=== PATIENT | male | born 1955 | race Two or more races ===

== ENCOUNTER 2019-11-14 08:58 | Inpatient (IN) | payer MEDICARE ==
[2019-11-14] VITALS (10 sets, daily range): BP systolic 111–143; BP diastolic 51–85
[~2019-11-14] VITALS: Ht 180.3 cm; Wt 133.4 kg
--- NOTE | 2019-11-14 09:15 | NUR ---
patient camein to the er c/o cough and congestion sob x 3 days, on room air 02 sat 78%, put patient on 02 @ 2lpm via NC, 02 sat went up to 92%. Connected to the monitor and pulse ox. kept comfortable, will continue to monitor accordingly.
[2019-11-14] MEDS ORDERED: ALBUTEROL FS 2.5 MG/3 ML VIAL.NEB CONTNEB ONE (09:30)
[2019-11-14 09:31] LABS: BASOPHILS # (AUTO) 0.1 /CMM (0.0-0.2); BASOPHILS % (AUTO) 0.6 % (0.0-2.0); EOSINOPHILS % (AUTO) 1.2 % (0.0-6.0); HEMATOCRIT 54 % (39-51); HEMOGLOBIN 18.2 g/dL (13.5-17.5); LYMPHOCYTES # (AUTO) 0.9 /CMM (0.8-4.8); LYMPHOCYTES % (AUTO) 9.2 % (20.0-44.0); MEAN CORPUSCULAR HGB CONC 34 g/dl (31.0-36.0); MEAN CORPUSCULAR VOLUME 91 fL (80-96); MONOCYTES # (AUTO) 0.9 /CMM (0.1-1.30); MONOCYTES % (AUTO) 8.5 % (2.0-12.0); NEUTROPHILS # (AUTO) 8.1 /CMM (1.8-8.9); NEUTROPHILS % (AUTO) 80.5 % (43.0-81.0); PLATELET COUNT (AUTO) 240 /CMM (150-450); RED BLOOD CELL COUNT(AUTO) 5.94 MIL/uL (4.5-6.0); WHITE BLOOD COUNT (AUTO) 10.1 K/uL (4.3-11.0)
[2019-11-14] MEDS ORDERED: ALBUTEROL FS 2.5 MG/3 ML VIAL.NEB ONE (09:33)
--- NOTE | 2019-11-14 09:35 | NUR ---
rt at bedside for treatment
[2019-11-14] MEDS ORDERED: CYAN-51 PO (09:39)
[2019-11-14] MEDS ORDERED: EXEN2PEN SQ (09:39)
[2019-11-14] MEDS ORDERED: ATOR40TA PO (09:39)
[2019-11-14] MEDS ORDERED: METF-440 PO (09:39)
[2019-11-14] MEDS ORDERED: METO25TA3 PO (09:39)
[2019-11-14] MEDS ORDERED: HYDR12.55 PO (09:39)
[2019-11-14] MEDS ORDERED: EMPA10TA PO (09:39)
[2019-11-14] MEDS ORDERED: TRAM50TA2 PO (09:39)
[2019-11-14] MEDS ORDERED: CYCL10TA9 PO (09:39)
[2019-11-14] MEDS ORDERED: INSU100I26 SQ (09:43)
[2019-11-14 09:53] LABS: CALCIUM, SERUM 9.6 mg/dL (8.5-10.1); CARBON DIOXIDE 32 mmol/L (21-32); CHLORIDE 101 mmol/L (98-107); CREATININE 0.9 mg/dL (0.6-1.3); GLUCOSE 98 mg/dL (74-106); POTASSIUM 4.9 mmol/L (3.5-5.1); SODIUM SERUM 140 mmol/L (136-145); UREA NITROGEN, BLOOD 14 mg/dL (7-18)
[2019-11-14 09:58] LABS: ALANINE AMINOTRANSFERASE 18 U/L (12-78); ALBUMIN 3.3 g/dL (3.4-5.0); ALKALINE PHOSPHATASE 94 U/L (46-116); ASPARTATE AMINOTRANSFERASE 23 U/L (15-37); B-TYPE NATRIURETIC PEPTIDE 185 PG/ML (0-125); BILIRUBIN,DIRECT 0.2 mg/dL (0.0-0.2); BILIRUBIN,TOTAL 0.7 mg/dL (0.2-1.0); TOTAL PROTEIN, SERUM 7.6 g/dL (6.4-8.2)
[2019-11-14 10:24] LABS: ABG BASE EXCESS 3.1 mmol/L; ABG OXYGEN SATURATION 88.7 % (92.0-98.5); ABG PCO2 56.7 mmHg (35.0-45.0); ABG PH 7.351 (7.350-7.450); ABG PO2 58.1 mmHg (75.0-100.0); AaDO2 132.8 mmHg; COHb 1.2 % (0.5-1.5); MetHb 0.4 % (0.0-1.5); O2Hb 87.3 % (94.0-97.0); SITE, ABG Right Radial; VENT MODE, BG NASAL CANNULA
[2019-11-14] MEDS ORDERED: IOHEXOL-350 100 ML VIAL IV ONE (10:26)
[2019-11-14] MEDS ORDERED: IV NS 0.9% 250 ML IV ONE (10:26)
[2019-11-14] MEDS ORDERED: CEFTRIAXONE 1 G in IV D5W 50 ML IV ONE (10:30)
[2019-11-14] MEDS ORDERED: AZITHROMYCIN 500 MG in IV D5W 250 ML IV ONE (10:30)
--- NOTE | 2019-11-14 10:36 | NUR ---
DR. DORIE QUINTANA, AWAITING FOR CALL BACK.
--- NOTE | 2019-11-14 10:57 | NUR ---
CALLED NURSING SUP FOR TELE BED.
--- NOTE | 2019-11-14 12:09 | NUR ---
PAGED THORACIC FORTUNE TELLER.
--- NOTE | 2019-11-14 13:55 | NUR ---
Report given to Brodie FU for continuity of care in the ICU
--- NOTE | 2019-11-14 14:40 | NUR ---
ICU/RN PT ADMITTED FROM ER WITH SOB,PLACED ON HIGH FLOW OXYGEN,FIO2-50%,SAT O2-94%,HR-110 BPM BP STABLE,AFEBRILE.NO PAIN REPORTED AT THIS TIME.PT IS AWAKE ,ALERT ,FOLLOWS COMMAND.AMBULATING IN THE ROOM.SOB ON EXERTIONS. IV-HL. CT CHEST DONE IN ER.PT HAS RIGHT LOBE BRONCHUS WITH TOTAL COLLAPSE AND OBSTRUCTIVE MASS, RECOMMENDED BRONCHOSCOPY.
[2019-11-14] MEDS ORDERED: Medication Not On Formulary EA (Exenatide Microspheres (Bydureon Pen) 2 MG) SQ SCH (17:00)
[2019-11-14] MEDS: METFORMIN 500 MG TABLET PO SCH (17:00)
--- NOTE | 2019-11-14 17:20 | NUR ---
ICU/RN BS-49.JUICE GIVEN ORDERED.PT EATS 100% FROM HIS MEAL TRAY.BS MEDS HOLD ORDERED BY .
[2019-11-14] MEDS ORDERED: DEXTROSE 50%-WATER 50 ML DISP.SYRIN IV PRN (18:00)
--- NOTE | 2019-11-14 18:55 | NUR ---
ICU/RN BS-109.
--- NOTE | 2019-11-14 19:30 | NUR ---
ICU/RN RECEIVED PATIENT A/O X4 AT THE MOMENT SHOWING NO SIGNS OF ANY DISTRESS. PATIENT IS ON 93% O2 SATURATION WITH HIGH FLOW OF OXYGEN. PATIENT ON THE MONITOR SHOWS SINUS RHYTHM WITH HR OF 95. PATIENT HAS A LFA AND A L HAND IV PATENT AND FLUSHING. PATIENT VITALS ARE WNL. ALL SAFETY PRECAUTIONS APPLIED WILL CONTINUE TO MONITOR PATIENT.
--- NOTE | 2019-11-14 21:53 | NUR ---
ICU/RN NOTE PAGED DR. PARR. REGARDING PATIENT REQUESTING TO USE OWN CPAP MACHINE. DR PARR GAVE THE OK.
[2019-11-14] MEDS: INSULIN GLARGINE, 100 UNIT/ML CARTRIDGE SQ SCH (21:57)
[2019-11-14] MEDS: BLOOD SUGAR DIAGNOSTIC 1 EACH STRIP IN SCH (21:57)
--- NOTE | 2019-11-14 21:58 | NUR ---
ICU/RN HOLDING LANTUS 50UNIT PATIENTS BLOOD SUGAR AT 81. WILL NOT BE EATING THROUGH OUT NIGHT. WILL CONTINUE TO MONITOR PATIENT.
[2019-11-14] MEDS: CYCLOBENZAPRINE 10 MG TABLET PO SCH (22:01)
[2019-11-15] VITALS (27 sets, daily range): BP systolic 97–179; BP diastolic 45–111
--- NOTE | 2019-11-15 06:13 | NUR ---
ICU/RN OFFERED PATIENT TO CHANGE SHEETS FROM BED AND PATIENT REFUSED SAID HE WILL WAIT TILL THE MORNING. WILL ENDORSE TO MORNING SHIFT NURSE.
--- NOTE | 2019-11-15 07:00 | NUR ---
BRIM WELT SEWING MACHINE OPERATOR CLOSING NOTE PATIENT IS IN BED WITH NO SIGN OF ANY DISTRESS. CONTINUES TO BE ON HIS HOME CPAP OF 10CFM AND 6L OF O2. SATURATING AT 93% WHEN AWAKE AND 88% WHEN ASLEEP. SO SIGN OF ANY SOB. ALL SAFETY PRECAUTIONS APPLIED. ENDORSED PATIENT TO MORNING SHIFT NURSE FOR JAZMYNE.
--- NOTE | 2019-11-15 07:30 | NUR ---
ICU/RN PT IS SITTING ON THE BED SOB,ON C-PAP.SAT O2-94%.V/S STABLE,AFEBRILE.NO PAIN REPORTED AT THIS TIME.IV -HL.BS-80.
--- NOTE | 2019-11-15 07:50 | NUR ---
RT PATIENT PLACED ON 5L N/C ADITHYA WELL. MAINTAINING SPO2 ABOVE 92%
[2019-11-15] MEDS: BLOOD SUGAR DIAGNOSTIC 1 EACH STRIP IN SCH ×4 (07:53→21:10)
[2019-11-15] MEDS: CYANOCOBALAMIN 500 MCG TABLET PO SCH (08:15)
[2019-11-15] MEDS: ATORVASTATIN 40 MG TABLET PO SCH (08:15)
[2019-11-15] MEDS: METFORMIN 500 MG TABLET PO SCH ×2 (08:16→16:43)
[2019-11-15] MEDS: HYDROCHLOROTHIAZIDE 25 MG TABLET PO SCH (08:16)
[2019-11-15] MEDS: METOPROLOL SUCCINATE 25 MG TAB.SR.24H PO SCH (08:17)
[2019-11-15] MEDS: TRAMADOL HCL 50 MG TABLET PO SCH (08:17)
[2019-11-15] MEDS: JARDIANCE PO SCH (08:20)
[2019-11-15] MEDS: INSULIN GLARGINE, 100 UNIT/ML CARTRIDGE SQ SCH ×2 (08:31→21:00)
--- NOTE | 2019-11-15 09:00 | NUR ---
ICU/RN DUE MEDS ARE GIVEN ORDERED.PT EATS 100% FROM HIS MEAL TRAY.
[2019-11-15] MEDS ORDERED: ALBUTEROL HALF STRENGTH 1.25 MG/3 ML VIAL.NEB NEB PRN (10:00)
[2019-11-15] MEDS ORDERED: IPRATROPIUM NEB FS 0.5 MG/2.5 ML AMPUL.NEB NEB PRN (10:00)
[2019-11-15 10:01] LABS: ABG BASE EXCESS 4.9 mmol/L; ABG OXYGEN SATURATION 94.1 % (92.0-98.5); ABG PCO2 56.7 mmHg (35.0-45.0); ABG PH 7.372 (7.350-7.450); ABG PO2 70.8 mmHg (75.0-100.0); AaDO2 149.2 mmHg; COHb 1.2 % (0.5-1.5); MetHb 0.4 % (0.0-1.5); O2Hb 92.6 % (94.0-97.0); SITE, ABG Right Radial; VENT MODE, BG HOME CPAP 10
--- NOTE | 2019-11-15 10:15 | NUR ---
ICU/RN DR CHARLTON SEEN THE PT NEW ORDERS RECEIVED.ABG DONE PT PLACED ON N/C.CONTINUE MONITORING.
[2019-11-15] MEDS: ALBUTEROL HALF STRENGTH 1.25 MG/3 ML VIAL.NEB NEB SCH ×3 (11:17→19:53)
[2019-11-15] MEDS: IPRATROPIUM NEB FS 0.5 MG/2.5 ML AMPUL.NEB NEB SCH ×3 (11:17→19:53)
[2019-11-15 12:50] LABS: BASOPHILS # (AUTO) 0.1 /CMM (0.0-0.2); EOSINOPHILS % (AUTO) 2.1 % (0.0-6.0); HEMATOCRIT 53 % (39-51); HEMOGLOBIN 17.1 g/dL (13.5-17.5); LYMPHOCYTES # (AUTO) 1.1 /CMM (0.8-4.8); LYMPHOCYTES % (AUTO) 12.6 % (20.0-44.0); MEAN CORPUSCULAR HGB CONC 32 g/dl (31.0-36.0); MEAN CORPUSCULAR VOLUME 92 fL (80-96); MONOCYTES # (AUTO) 0.8 /CMM (0.1-1.30); NEUTROPHILS # (AUTO) 6.5 /CMM (1.8-8.9); NEUTROPHILS % (AUTO) 75.3 % (43.0-81.0); PLATELET COUNT (AUTO) 231 /CMM (150-450); RED BLOOD CELL COUNT(AUTO) 5.77 MIL/uL (4.5-6.0); WHITE BLOOD COUNT (AUTO) 8.6 K/uL (4.3-11.0)
[2019-11-15 12:58] LABS: CALCIUM, SERUM 9.4 mg/dL (8.5-10.1); CREATININE 0.8 mg/dL (0.6-1.3); POTASSIUM 4.3 mmol/L (3.5-5.1)
--- NOTE | 2019-11-15 16:20 | NUR ---
ICU/RN RIGHT THORACENTESIS DONE 1310 ML PLEURAL FLUIDS OUT.PT TOLERATED PROCEDURE WELL.NO S/S OF BLEEDING NOTED. V/S STABLE,AFEBRILE.PT IS SITTING ON THE CHAIR NEXT TO THE BED ON N/C AT 6L .SAT O2-94%.
--- NOTE | 2019-11-15 19:00 | NUR ---
RN OPENING NOTES: PATIENT IN BED, AWAKE, AND VERBALLY RESPONSIVE. AAOX4. NO RESPIRATORY DISTRESS. ON O2 AT 6LPM VIA NC, TOLERATING WELL, SATTING 94%. (L) FA G18 AND (L) HAND G18 INTACT, PATENT, AND FLUSHING WELL. SALINE LOCKED. SAFETY PRECAUTIONS IMPLEMENTED. BED LOCKED, ALARM ON, AND IN LOWEST POSITION. CALL LIGHT PLACED WITHIN REACH. WILL CONT. TO MONITOR.
--- NOTE | 2019-11-15 21:00 | NUR ---
RN NOTE: LANTUS 50 UNITS NOT ADMINISTERED. PATIENT REFUSED. PATIENT'S BS 121. PER PATIENT, HE WILL NOT BE EATING THROUGHOUT THE NIGHT.
[2019-11-15] MEDS: CYCLOBENZAPRINE 10 MG TABLET PO SCH (21:10)
--- NOTE | 2019-11-15 21:29 | NUR ---
PT PLACED ON HOME CPAP MACHINE.
[2019-11-16] VITALS (16 sets, daily range): BP systolic 109–146; BP diastolic 54–85
[2019-11-16] MEDS: IPRATROPIUM NEB FS 0.5 MG/2.5 ML AMPUL.NEB NEB SCH ×4 (01:07→19:30)
[2019-11-16] MEDS: ALBUTEROL HALF STRENGTH 1.25 MG/3 ML VIAL.NEB NEB SCH ×4 (01:07→19:30)
--- NOTE | 2019-11-16 07:00 | NUR ---
RN CLOSING NOTES: PATIENT ASLEEP BUT EASILY AROUSABLE. AAOX4. NO RESPIRATORY DISTRESS. PATIENT TOLERATED CPAP AT NIGHT. (L) FA G18 AND (L) HAND G18 INTACT, PATENT, AND FLUSHING WELL. SALINE LOCKED. SAFETY PRECAUTIONS IMPLEMENTED. BED LOCKED, ALARM ON, AND IN LOWEST POSITION. CALL LIGHT PLACED WITHIN REACH. ENDORSED TO AM SHIFT NURSE FOR CONTINUITY OF CARE.
--- NOTE | 2019-11-16 07:30 | NUR ---
RN MED SURG OPENING NOTES PATIENT IS RESTING COMFORTABLY IN BED. A/O X4. NO RESPIRATORY DISTRESS IS NOTED AT THE MOMENT. PATIENT IS CURRENTLY ON THE CPAP MACHINE THAT HE HAS BROUGHT FROM HOME. SETTING ORDERED. RESPIRATORY WILL BE TAKING IT OFF SHORTLY. IV # 18 ON LEFT HAND AND FOREARM, BOTH ARE INTACT, PATENT, AND FLUSHED WELL. NO SIGNS OF INFECTION PRESENT. SKIN IS INTACT, PATIENT IS AMBULATORY AND IS ABLE TO USE THE URINAL. NSR/ST ON TELE MONITOR WITH HR GOING UP TO 106. CALL LIGHT WITHIN REACH, SAFETY MAINTAINED, WILL CONTINUE TO MONITOR.
[2019-11-16] MEDS: BLOOD SUGAR DIAGNOSTIC 1 EACH STRIP IN SCH ×4 (07:47→21:14)
[2019-11-16 08:09] LABS: ABG BASE EXCESS 3.6 mmol/L; ABG OXYGEN SATURATION 86.6 % (92.0-98.5); ABG PCO2 51.6 mmHg (35.0-45.0); ABG PH 7.384 (7.350-7.450); ABG PO2 50.3 mmHg (75.0-100.0); AaDO2 37.6 mmHg; COHb 1.2 % (0.5-1.5); MetHb 0.2 % (0.0-1.5); O2Hb 85.4 % (94.0-97.0); SITE, ABG Left Radial; VENT MODE, BG RA
[2019-11-16] MEDS: TRAMADOL HCL 50 MG TABLET PO SCH (09:00)
[2019-11-16] MEDS: INSULIN GLARGINE, 100 UNIT/ML CARTRIDGE SQ SCH ×2 (09:00→21:11)
[2019-11-16] MEDS: JARDIANCE PO SCH (09:13)
[2019-11-16] MEDS: CYANOCOBALAMIN 500 MCG TABLET PO SCH (09:13)
[2019-11-16] MEDS: HYDROCHLOROTHIAZIDE 25 MG TABLET PO SCH (09:14)
[2019-11-16] MEDS: METOPROLOL SUCCINATE 25 MG TAB.SR.24H PO SCH (09:15)
[2019-11-16] MEDS: ATORVASTATIN 40 MG TABLET PO SCH (09:15)
[2019-11-16] MEDS: INSULIN REGULAR, HUMAN 100 UNIT/ML 3 ML VIAL SQ PRN ×2 (13:17→21:15)
--- NOTE | 2019-11-16 18:53 | NUR ---
RNNOTES PATIENT TRANSFERRED TO SAM UNIT. WILL REMAIN THE NURSE FOR THE PATIENT. PATIENT IS IN STABLE CONDITION. ALL NEEDS MET. WILL CONTINUE TO MONITOR. SAFETY MAINTAINED.
--- NOTE | 2019-11-16 18:58 | NUR ---
RN CLOSING NOTES PATIENT IN STABLE CONDITION. NO ACUTE CHANGES TO PATIENT CONDITION DURING MY SHIFT. BLOOD GLUCOSE WAS UNDER CONTROL DURING MY SHIFT. DID NOT ADMINISTER THE MORNING DOSE OF LANTUS BECAUSE PATIENTS BLOOD SUGAR WAS WITHIN NORMAL RANGE AND PATIENT REFUSED BECAUSE HE TENDS TO DROP. PATIENT WAS PLACED ON 2L NASAL CANULA, DID NOT TOLERATE ROOM AIR WELL. TOLERATING O2 AT 2L VIA NC WELL, SATURATING @ 94%. SAFETY MAINTAINED, CALL LIGHT WITHIN REACH, ENDORSED TO CIRCULATION SUPERVISOR NURSE TO CONTINUE CARE.
--- NOTE | 2019-11-16 19:34 | NUR ---
RN SAM OPENING NOTES RECEIVED PT SITTING ON CHAIR, FAMILY AT BEDSIDE, AWAKE A/O X4 ABLE TO CONVERSE, ON O2 VIA NC @ 6L TOLERATING WELL WITH O2 SAT OF 98% NO COMPLAIN OF PAIN, WITH IV ON L HAND PATENT NO SIGN AND SYMPTOMS OF INFILTRATION, SAFETY MEASURE MAINTAIN CALL LIGHT WITH REACH, WILL CONT. TO MONITOR
[2019-11-16] MEDS: CYCLOBENZAPRINE 10 MG TABLET PO SCH (21:15)
[2019-11-17] VITALS (7 sets, daily range): BP systolic 108–145; BP diastolic 60–73
[2019-11-17] MEDS: ALBUTEROL HALF STRENGTH 1.25 MG/3 ML VIAL.NEB NEB SCH ×4 (00:33→13:24)
[2019-11-17] MEDS: IPRATROPIUM NEB FS 0.5 MG/2.5 ML AMPUL.NEB NEB SCH ×4 (00:33→13:24)
--- NOTE | 2019-11-17 07:00 | NUR ---
SAM RN Notes - Initial Notes Received patient from shift commander RN. Patient is alert and oriented x4, stable, in bed resting with CPAP. Per shift commander RN patient had thoracentesis with 1300 OP. No current signs of respiratory distress noted. Patient RR18, 02 96. Will change to nasal canula when patient is awake. Patient has IV access on right hand 20g and left AC 18g. Both are saline locked. Will continue to monitor. All measures taken to ensure patient safety. Bed in lowest position, call light within reach, safety alarms on.
--- NOTE | 2019-11-17 07:27 | NUR ---
RN CLOSING NOTES: PATIENT ASLEEP BUT EASILY AROUSABLE. AAOX4. NO RESPIRATORY DISTRESS. TELE MONITOR CURRENT READING IS SR 88 PATIENT TOLERATED CPAP AT NIGHT. (L) FA G18 AND (L) HAND G18 INTACT, PATENT, AND FLUSHING WELL. SALINE LOCKED. SAFETY PRECAUTIONS IMPLEMENTED. BED LOCKED, ALARM ON, AND IN LOWEST POSITION. CALL LIGHT PLACED WITHIN REACH. ENDORSED TO AM SHIFT NURSE FOR CONTINUITY OF CARE.
[2019-11-17] MEDS: BLOOD SUGAR DIAGNOSTIC 1 EACH STRIP IN SCH ×2 (08:24→11:42)
[2019-11-17] MEDS: ATORVASTATIN 40 MG TABLET PO SCH (08:54)
[2019-11-17] MEDS: HYDROCHLOROTHIAZIDE 25 MG TABLET PO SCH (08:56)
[2019-11-17] MEDS: METOPROLOL SUCCINATE 25 MG TAB.SR.24H PO SCH (08:57)
[2019-11-17] MEDS: CYANOCOBALAMIN 500 MCG TABLET PO SCH (08:58)
[2019-11-17] MEDS: INSULIN GLARGINE, 100 UNIT/ML CARTRIDGE SQ SCH (09:00)
[2019-11-17] MEDS: TRAMADOL HCL 50 MG TABLET PO SCH (09:00)
[2019-11-17] MEDS: JARDIANCE PO SCH (09:38)
--- NOTE | 2019-11-17 12:30 | NUR ---
mika rn note up on chair ,all needs attended ,per dr erich thao to remove isolation , no sob at this time ,will cont to monitor
--- NOTE | 2019-11-17 15:04 | NUR ---
mika rn note per dr kilgore ok to d\c patient home ,on ra at this time, no so noted , ok to cont home meds , per test case developer [employer] is arranged , instructed patient to f\u with primary care doctor and f\u with home health . home Meds given to patient from our pharmacy Addendum: 11/17/19 at 1549 by RANJIT CHACON RN MIKA TRANSCRIBER NOTE Patient is alert and oriented x4, okay to be discharged per Dr. Kilgore. Patient teaching completed on respiratory failure, COPD, and core measures. Patient was able to do teach back on what medications he was receiving at home and what potential side effects to watch for. Patient was offered an ambulance ride, or to have a friend come pick him up. Patient requests at this time to drive home by himself, per his explanation he lives 4 blocks away. home instruction given , hl removed no bleeding noted , no sob noted at this time,instructed to f\u with primary care doctor and home health
--- NOTE | 2019-11-17 15:52 | NUR ---
mika rn note taken home by yarn examiner skeins to mo , jayne sob went home with stable condition, refused to sit on w\c
== END 2019-11-17 15:50 | disposition home health service (06) | DRG 189 ==
LOC: ER 09:05 → ICU 13:02 → TELE-TD 11-16 11:52
PROVIDERS: ADMIT Internal Medicine; ATTEND Internal Medicine
PROC: 5A09357 Assistance with Respiratory Ventilation, Less than 24 Consecutive Hours, Continuous Positive Airway Pressure (ICD-10-PCS; 2019-11-14)
PROC: 0W993ZZ Drainage of Right Pleural Cavity, Percutaneous Approach (ICD-10-PCS; principal; 2019-11-15)
DX: J96.92 Respiratory failure, unspecified with hypercapnia (principal); J90 Pleural effusion, not elsewhere classified; J98.11 Atelectasis; Z68.41 Body mass index [BMI] 40.0-44.9, adult; J98.19 Other pulmonary collapse; D75.1 Secondary polycythemia; E11.9 Type 2 diabetes mellitus without complications; I10 Essential (primary) hypertension; E66.01 Morbid (severe) obesity due to excess calories; E78.5 Hyperlipidemia, unspecified; G47.33 Obstructive sleep apnea (adult) (pediatric); J96.91 Respiratory failure, unspecified with hypoxia; Z79.84 Long term (current) use of oral hypoglycemic drugs; G20 Parkinson's disease; Z72.0 Tobacco use; J44.9 Chronic obstructive pulmonary disease, unspecified; R91.8 Other nonspecific abnormal finding of lung field
CPT/HCPCS: 36415; 36600; 71045-TC; 80048-TC; 80076-TC; 82803-TC; 82962-TC; 83605-TC; 83735-TC; 83880; 84484-TC; 85025-TC; 85610-TC; 87040-TC; 87070-TC; 87081-TC; 87116; 87206; 88112-TC; 88305-TC; 88312-TC; 88341; 88342; 89051-TC; 94799-TC; 99082-TC; G0378; J0456; J0696; J1815; J7050; J7060; Q9967

== ENCOUNTER 2019-11-25 09:36 | Outpatient (CLI) | payer MEDICARE ==
[~2019-11-25 09:36] MED LIST: ATOR40TA PO; CYAN-51 PO; CYCL10TA9 PO; EMPA10TA PO; EXEN2PEN SQ; HYDR12.55 PO; INSU100I26 SQ; METF-440 PO; METO25TA3 PO; TRAM50TA2 PO
== END 2019-11-25 23:59 | disposition home or self-care (01) ==
LOC: US 09:36
PROVIDERS: ATTEND Internal Medicine
DX: J90 Pleural effusion, not elsewhere classified (principal)
CPT/HCPCS: 71045-TC; 88112-TC; 88305-TC; 88312-TC

== ENCOUNTER 2020-02-06 09:05 | Inpatient (IN) | payer MEDICARE ==
[~2020-02-06] VITALS: Ht 180.3 cm; Wt 108.9 kg
--- NOTE | 2020-02-06 09:18 | NUR ---
PT TO ER BED 06. SENT BY DR VASQUEZ FOR ADMISSION FOR A LUNG BIOPSY. PT'S BEEN C/O SHORTNESS OF BREATH FOR THSE PAST 2 WEEKS. PT DENIES ANY CHEST PAIN. ON O2@2L/MIN. VSS. AWAITING MD SOTRM.
--- NOTE | 2020-02-06 09:20 | NUR ---
IV LINE STARTED BLOOD DRAWN AND SENT TO LAB.
--- NOTE | 2020-02-06 09:20 | NUR ---
DR KAY AT BEDSIDE FOR EVAL.
--- NOTE | 2020-02-06 09:28 | NUR ---
Note karenone in EDM - 02/06/20 at 1111 by DELVIS PT TO ER BED 06. SENT BY DR VASQUEZ FOR ADMISSION FOR A LUNG BIOPSY. PT'S BEEN C/O SHORTNESS OF BREATH FOR THSE PAST 2 WEEKS. PT DENIES ANY CHEST PAIN. ON O2@2L/MIN. VSS. AWAITING MD STORM.
[2020-02-06 09:52] LABS: BASOPHILS # (AUTO) 0.1 /CMM (0.0-0.2); BASOPHILS % (AUTO) 0.9 % (0.0-2.0); EOSINOPHILS % (AUTO) 4.1 % (0.0-6.0); HEMATOCRIT 50 % (39-51); HEMOGLOBIN 16.4 g/dL (13.5-17.5); LYMPHOCYTES # (AUTO) 0.7 /CMM (0.8-4.8); LYMPHOCYTES % (AUTO) 9.4 % (20.0-44.0); MEAN CORPUSCULAR HGB CONC 33 g/dl (31.0-36.0); MEAN CORPUSCULAR VOLUME 91 fL (80-96); MONOCYTES # (AUTO) 0.9 /CMM (0.1-1.30); MONOCYTES % (AUTO) 12.4 % (2.0-12.0); NEUTROPHILS # (AUTO) 5.6 /CMM (1.8-8.9); NEUTROPHILS % (AUTO) 73.2 % (43.0-81.0); PLATELET COUNT (AUTO) 269 /CMM (150-450); RED BLOOD CELL COUNT(AUTO) 5.43 MIL/uL (4.5-6.0); WHITE BLOOD COUNT (AUTO) 7.6 K/uL (4.3-11.0)
[2020-02-06 10:08] LABS: CARBON DIOXIDE 35 mmol/L (21-32); CHLORIDE 98 mmol/L (98-107); POTASSIUM 3.9 mmol/L (3.5-5.1); SODIUM SERUM 138 mmol/L (136-145)
[2020-02-06 10:09] LABS: CALCIUM, SERUM 9.4 mg/dL (8.5-10.1); CREATININE 0.8 mg/dL (0.6-1.3); GLUCOSE 116 mg/dL (74-106); UREA NITROGEN, BLOOD 14 mg/dL (7-18)
[2020-02-06 10:17] LABS: BILIRUBIN,TOTAL 0.6 mg/dL (0.2-1.0)
[2020-02-06 10:18] LABS: ALANINE AMINOTRANSFERASE 20 U/L (12-78); ALBUMIN 2.4 g/dL (3.4-5.0); ALKALINE PHOSPHATASE 73 U/L (46-116); ASPARTATE AMINOTRANSFERASE 30 U/L (15-37); B-TYPE NATRIURETIC PEPTIDE 99 PG/ML (0-125)
[2020-02-06 10:40] LABS: ABG BASE EXCESS 7.5 mmol/L; ABG OXYGEN SATURATION 95.6 % (92.0-98.5); ABG PCO2 65.5 mmHg (35.0-45.0); ABG PH 7.357 (7.350-7.450); ABG PO2 86.1 mmHg (75.0-100.0); AaDO2 50.8 mmHg; COHb 0.9 % (0.5-1.5); MetHb 0.4 % (0.0-1.5); O2Hb 94.4 % (94.0-97.0); SITE, ABG Left Radial; VENT MODE, BG NC 3L
--- NOTE | 2020-02-06 13:08 | NUR ---
NURSING SUP GAVE BED 202.
--- NOTE | 2020-02-06 13:17 | NUR ---
REPORT GIVEN TO JALIL FU. PT AWAITING TRANSFER TO FLOOR.
[2020-02-06 16:00] VITALS: BP 118/67
--- NOTE | 2020-02-06 18:04 | NUR ---
rn closing notes Patient remains on 4 L o2, no sob noted, patient adjusts o2 as he prefers. Patient able to walk around with good balance. Dietary order placed and awaiting for delivery. 20 L hand present. Awaiting for Dr. Kilgore to place order for patient. Dr. Kilgore stated that he is going to call for the order. Bed at the lowest setting, call light within reach, side rails up x2. Will give report to NOC RN for JAZMYNE bedside.
--- NOTE | 2020-02-06 18:30 | NUR ---
RN NOTES patient transferred to 201 - 1 from 209
--- NOTE | 2020-02-06 19:30 | NUR ---
SULFUR CHLORIDE OPERATOR NOTE: PATIENT RESTING IN BED, NO ACUTE DISTRESS NOTED. BREATHING EVEN AND UNLABORED, NO SOB NOTED. IV TO LEFT HAND IN PLACE. BED LOCKED AND IN LOWEST POSITION, CALL LIGHT IN REACH. WILL CONTINUE TO MONITOR.
[2020-02-06] MEDS: IPRATROPIUM/ALBUTEROL INHALER IH SCH (20:02)
[2020-02-06 20:15] VITALS: BP 123/69
[2020-02-06] MEDS ORDERED: DEXTROSE 50%-WATER 50 ML DISP.SYRIN IV PRN (21:00)
--- NOTE | 2020-02-06 21:15 | NUR ---
PAI GOW DEALER NOTE: CALLED DR. OSHEA'S OFFICE FOR ADMIT ORDERS, SPOKE TO CLEANING LABORER MARCIN LOO NP, WITH ADMIT ORDERS. ORDERS READ BACK AND VERIFIED. ORDERS NOTED AND CARRIED OUT. WILL CONTINUE TO MONITOR.
[2020-02-06] MEDS ORDERED: TRAMADOL HCL 50 MG TABLET PO SCH (22:00)
[2020-02-06] MEDS: CYCLOBENZAPRINE 10 MG TABLET PO SCH (22:26)
[2020-02-06] MEDS: BLOOD SUGAR DIAGNOSTIC 1 EACH STRIP IN SCH (22:27)
--- NOTE | 2020-02-06 22:30 | NUR ---
SERVICE OBSERVER NOTE: PATIENT BLOOD SUGAR LEVEL 92MG/DL, NO INSULIN NEEDED PER SLIDING SCALE. NO S/S OF HYPER/HYPOGLYCEMIA NOTED. WILL CONTINUE TO MONITOR.
[2020-02-07] MEDS: IPRATROPIUM/ALBUTEROL INHALER IH SCH ×4 (00:47→17:19)
[2020-02-07 01:15] VITALS: BP 155/74
[2020-02-07 04:29] VITALS: BP 130/73
--- NOTE | 2020-02-07 06:10 | NUR ---
VOCATIONAL SERVICES SPECIALIST NOTE: PATIENT RESTING IN BED, NO ACUTE DISTRESS NOTED. BREATHING EVEN AND UNLABORED, NO SOB NOTED. IV TO LEFT HAND IN PLACE. TELE READING SR 80. BED LOCKED AND IN LOWEST POSITION, CALL LIGHT IN REACH. WILL ENDORSE TO DAY NURSE TO CONTINUE WITH PLAN OF CARE. Addendum: 02/07/20 at 0725 by BLUE LAYTON RN PATIENT BLOOD SUGAR LEVEL 77MG/DL, NO INSULIN NEEDED PER SLIDING SCALE. NO S/S OF HYPER/HYPOGLYCEMIA.
[2020-02-07] MEDS: BLOOD SUGAR DIAGNOSTIC 1 EACH STRIP IN SCH ×4 (06:58→22:18)
[2020-02-07 07:38] LABS: BASOPHILS # (AUTO) 0.1 /CMM (0.0-0.2); BASOPHILS % (AUTO) 0.9 % (0.0-2.0); EOSINOPHILS % (AUTO) 4.7 % (0.0-6.0); HEMATOCRIT 49 % (39-51); HEMOGLOBIN 15.9 g/dL (13.5-17.5); LYMPHOCYTES # (AUTO) 0.8 /CMM (0.8-4.8); LYMPHOCYTES % (AUTO) 11.2 % (20.0-44.0); MEAN CORPUSCULAR HGB CONC 33 g/dl (31.0-36.0); MEAN CORPUSCULAR VOLUME 92 fL (80-96); MONOCYTES # (AUTO) 0.9 /CMM (0.1-1.30); NEUTROPHILS # (AUTO) 4.9 /CMM (1.8-8.9); NEUTROPHILS % (AUTO) 70.2 % (43.0-81.0); PLATELET COUNT (AUTO) 241 /CMM (150-450); RED BLOOD CELL COUNT(AUTO) 5.35 MIL/uL (4.5-6.0)
[2020-02-07 07:56] LABS: ALBUMIN 2.5 g/dL (3.4-5.0); BILIRUBIN,TOTAL 0.8 mg/dL (0.2-1.0); CALCIUM, SERUM 9.5 mg/dL (8.5-10.1); CREATININE 0.6 mg/dL (0.6-1.3); POTASSIUM 3.8 mmol/L (3.5-5.1); TOTAL PROTEIN, SERUM 7.2 g/dL (6.4-8.2)
--- NOTE | 2020-02-07 07:59 | NUR ---
MS/RN - Assessment Patient is awake, A/O x 4, no complaints overnight, afebrile, uses supplemental oxygen 3lpm via NC, saturating well, no SOB/respiratory distress, denies pain, tele shows SR. Patient is ambulatory with steady gait. Labs reviewed, no critical results seen. Contact and droplet precautions maintained for r/o Covid-19. Will continue with current plan of care.
[2020-02-07] MEDS: CYANOCOBALAMIN 500 MCG TABLET PO SCH (08:49)
[2020-02-07] MEDS: HYDROCHLOROTHIAZIDE 25 MG TABLET PO SCH (08:49)
[2020-02-07] MEDS: METFORMIN 500 MG TABLET PO SCH ×2 (08:49→16:40)
[2020-02-07] MEDS: ATORVASTATIN 40 MG TABLET PO SCH (08:50)
[2020-02-07] MEDS: METOPROLOL SUCCINATE 25 MG TAB.SR.24H PO SCH (08:50)
[2020-02-07 08:54] VITALS: BP 109/67
[2020-02-07] MEDS ORDERED: TRAMADOL HCL 50 MG TABLET PO SCH (09:00)
[2020-02-07] MEDS ORDERED: INSULIN GLARGINE,BASAGLAR 100 UNIT/ML INSULN.PEN SQ SCH (09:00)
[2020-02-07 12:00] VITALS: BP 118/71
[2020-02-07] MEDS ORDERED: TRAMADOL HCL 50 MG TABLET PO PRN (14:30)
[2020-02-07] MEDS: TRAMADOL HCL 50 MG TABLET PO PRN ×2 (14:30→22:18)
[2020-02-07 16:00] VITALS: BP 164/69
--- NOTE | 2020-02-07 19:26 | NUR ---
Tele/RN - End of shift summary No significant change in condition seen. Covid-19 result still pending. Will continue with current plan of care. Endorsed to night RN accordingly.
--- NOTE | 2020-02-07 19:30 | NUR ---
MANAGING ATTORNEY NOTE: PATIENT RESTING IN BED, NO ACUTE DISTRESS NOTED. BREATHING EVEN AND UNLABORED, NO SOB NOTED. IV TO LEFT HAND IN PLACE. NO S/S OF HYPER/HYPOGLYCEMIA NOTED. BED LOCKED AND IN LOWEST POSITION, CALL LIGHT IN REACH. WILL CONTINUE TO MONITOR.
[2020-02-07 20:00] VITALS: BP 134/72
[2020-02-07] MEDS ORDERED: CYCLOBENZAPRINE 10 MG TABLET PO SCH (22:00)
[2020-02-07] MEDS: CYCLOBENZAPRINE 10 MG TABLET PO SCH (22:18)
--- NOTE | 2020-02-07 22:40 | NUR ---
STEM DRYER MAINTAINER NOTE: PATIENT BLOOD SUGAR LEVEL 122MG/DL, NO INSULIN NEEDED PER SLIDING SCALE. NO S/S OF HYPER/HYPOGLYCEMIA NOTED. PATIENT COMPLAINS OF BACK PAIN, ULTRAM 50MG 1 TAB ORAL GIVEN PER MD ORDER. WILL CONTINUE TO MONITOR.
[2020-02-08] VITALS: BP 122/71
[2020-02-08] MEDS: IPRATROPIUM/ALBUTEROL INHALER IH SCH ×4 (00:37→17:17)
[2020-02-08 04:00] VITALS: BP 122/71
--- NOTE | 2020-02-08 06:10 | NUR ---
TRAFFIC COUNTER NOTE: PATIENT RESTING IN BED, NO ACUTE DISTRESS NOTED. BREATHING EVEN AND UNLABORED, NO SOB NOTED. IV TO LEFT HAND IN PLACE. TELE READING SR 80. BED LOCKED AND IN LOWEST POSITION, CALL LIGHT IN REACH. WILL ENDORSE TO DAY NURSE TO CONTINUE WITH PLAN OF CARE. Addendum: 02/08/20 at 0701 by BLUE LAYTON RN PATIENT BLOOD SUGAR LEVEL 120MG/DL, NO INSULIN NEEDED PER SLIDING SCALE. NO S/S OF HYPER/HYPOGLYCEMIA.
[2020-02-08] MEDS: BLOOD SUGAR DIAGNOSTIC 1 EACH STRIP IN SCH ×4 (06:39→22:48)
--- NOTE | 2020-02-08 07:15 | NUR ---
MS/RN - Assessment Patient is awake, A/O x 4, no complaints overnight, afebrile, uses supplemental oxygen 3lpm via NC, saturating well, denies chest pain, c/o SOB with exertion. Saline lock on the left hand is patent, intact, with no signs of infiltration. Patient is ambulatory with steady gait. Patient is Covid-19 negative, Dr. Dykes made aware for nocturnal CPAP order. Will continue with current medical management.
[2020-02-08 08:00] VITALS: BP 127/86
[2020-02-08] MEDS: METOPROLOL SUCCINATE 25 MG TAB.SR.24H PO SCH (08:46)
[2020-02-08] MEDS: METFORMIN 500 MG TABLET PO SCH ×2 (08:46→17:17)
[2020-02-08] MEDS: ATORVASTATIN 40 MG TABLET PO SCH (08:46)
[2020-02-08] MEDS: CYANOCOBALAMIN 500 MCG TABLET PO SCH (08:47)
[2020-02-08] MEDS: HYDROCHLOROTHIAZIDE 25 MG TABLET PO SCH (08:47)
--- NOTE | 2020-02-08 10:05 | NUR ---
MS/RN - Consent Procedure and anesthesia consent for right sided pleurx catheter insertion and bronchoscopy with biopsy signed by the patient.
--- NOTE | 2020-02-08 10:10 | NUR ---
MS/RN - Notes Called Dr. Wesley's office ([phone]) for right sided pleurx catheter insertion per Dr. Dykes's order.
[2020-02-08] MEDS ORDERED: CARBOXYMETHYLCELLULOSE PO PRN (15:30)
[2020-02-08] MEDS ORDERED: LYTES PO PRN (15:30)
[2020-02-08 16:00] VITALS: BP 145/84
[2020-02-08] MEDS: INSULIN REGULAR, HUMAN 100 UNIT/ML 3 ML VIAL SQ PRN ×2 (17:18→22:51)
--- NOTE | 2020-02-08 18:30 | NUR ---
MS/RN - End of shift summary No significant change in condition seen. Patient scheduled tomorrow at 2pm for bronchoscopy with biopsy with Dr. Dykes and right sided pleurx catheter insertion d/t recurrent pleural effusion with Dr. Wesley. Will continue with current plan of care. Will endorsed to night RN accordingly.
--- NOTE | 2020-02-08 19:00 | NUR ---
MS/RN OPENING NOTES: PATIENT RESTING IN BED, NO ACUTE DISTRESS NOTED. BREATHING EVEN AND UNLABORED, NO SOB NOTED. IV TO LEFT HAND IN PLACE. NO S/S OF HYPER/HYPOGLYCEMIA NOTED. BED LOCKED AND IN LOWEST POSITION, CALL LIGHT IN REACH. WILL CONTINUE TO MONITOR.
[2020-02-08 20:00] VITALS: BP 118/60
[2020-02-08 20:40] VITALS: BP 118/60
--- NOTE | 2020-02-08 22:13 | NUR ---
RT arrived to find pt on 3lnc. pt spo2 90% hr 96. placed pt on noc cpap per md order. per pt, pt has sleep apnea. cpap settings peep 10, per order. fio2 32%, per pt current fi02 setting on nasal cannula. no set fi02 setting per md order. pt tolerating cpap at this time. will continue to monitor.
--- NOTE | 2020-02-08 22:20 | NUR ---
RT mepilex applied to mask to prevent breakdown of skin on bridge of nose and face
[2020-02-08] MEDS: CYCLOBENZAPRINE 10 MG TABLET PO SCH (22:44)
--- NOTE | 2020-02-08 22:47 | NUR ---
MS/RN NOTES: BS CHECK 154. 2 UNITS ADMINISTERED PER SLIDING SCALE. GIVEN 1 BOX OF APPLE JUICE. WILL CONTINUE TO MONITOR.
[2020-02-09] VITALS (11 sets, daily range): BP systolic 101–151; BP diastolic 48–88
--- NOTE | 2020-02-09 | NUR ---
MS/RN NOTES: PT. CONNECTED TO IV D5NS @75MLS/HR PER ORDERED. IV LINE IS INTACT, PATENT AND INFUSING WELL.
[2020-02-09] MEDS: IV D5/ 0.9% NACL 1,000 ML IV PRN ×2 (00:01→16:45)
[2020-02-09] MEDS: methylPREDNISolone SOD SUCC 125 MG/2ML VIAL IV SCH ×2 (00:02→12:54)
[2020-02-09] MEDS: IPRATROPIUM/ALBUTEROL INHALER IH SCH ×4 (00:08→18:00)
--- NOTE | 2020-02-09 02:08 | NUR ---
RT fio2 was titrated down because stated the flow was drying out his mouth. rt noticed the fio2 was not the set percentage, pt stated he turned it down himself. pt said he is normally on 2L at home, per his pilot captain. on 28%, pt sating 94% hr 103. pt removed mepilex stating it was uncomfortable and an annoyance. did not want a new piece reapplied to the mask. made aware that the purpose was to prevent skin breakdown and the pt said he understood and refused.
--- NOTE | 2020-02-09 04:58 | NUR ---
RT pt took self off cpap. does not want to go back on cpap at this time. placed on 4 lnc. pt tolerating well at this time. blaze tang, aware.
--- NOTE | 2020-02-09 06:32 | NUR ---
ms/rn notes
--- NOTE | 2020-02-09 06:33 | NUR ---
MS/RN NOTES: CLARIFIED WITH CHARGE NURSE. CHECKLIST TO BE DONE IN THE MORNING BY DAY SHIFT TO CLARIFY WITH IF PT. NEEDS UPDATED LABS. WILL ENDORSE TO DAY SHIFT
[2020-02-09] MEDS: INSULIN REGULAR, HUMAN 100 UNIT/ML 3 ML VIAL SQ PRN ×2 (06:42→23:22)
[2020-02-09] MEDS: BLOOD SUGAR DIAGNOSTIC 1 EACH STRIP IN SCH ×4 (06:42→23:23)
--- NOTE | 2020-02-09 06:43 | NUR ---
MS/RN NOTES: BS CHECK 156. NO INSULIN GIVEN SINCE PT IS NPO AFTER 6AM FOR PROCEDURE rIGHT SIDED PLEURX CATH INSERTION. WILL CONTINUE TO MONITOR.
--- NOTE | 2020-02-09 07:10 | NUR ---
MS RN NOTES RECEIVED PATIENT IN BED, ALERT AND ORIENTED X4. AMBULATORY WITH STEADY GAIT. ON 02 @3L/MIN VIA NC ADITHYA WELL. NO SOB. REMAINS NPO FOR SCHEDULED SURGERY TODAY. LEFT HAND # 20 INTACT AND PATENT INFUSING D5NS @ 75ML/HR ADITHYA WELL. DENIES ANY PAIN JEANNA DISCOMFORT. ABLE TO VERBALIZE NEEDS. BED IN LOWEST POSITION, LOCKED. JOSE LIGHT WITHIN REACH.
--- NOTE | 2020-02-09 07:27 | NUR ---
MS/RN CLOSING NOTES: PATIENT RESTING IN BED, NO ACUTE DISTRESS NOTED. BREATHING EVEN AND UNLABORED, NO SOB NOTED. NO SIGNIFICANT CHANGES IN CONDITION. IV TO LEFT HAND IN PLACE WITH D5NS RUNNING AT 75MLS/HR. NO S/S OF HYPER/HYPOGLYCEMIA NOTED. ALL DUE MEDS GIVEN ORDERED. ALL NEEDS MET AND RENDERED. ALL CONSENTS SIGNED FOR BRONCHOSCOPY BIOPSY WITH DR. CHARLTON AND RIGHT SIDED PLEURX CATHETER INSERTION D/T RECURRENT PLEURAL EFFUSION WITH DR. GARCIA. KEPT PT. NPO STARTING AT 6AM. BED LOCKED AND IN LOWEST POSITION, CALL LIGHT IN REACH. WILL ENDORSE TO DAY SHIFT RN FOR JAZMYNE.
[2020-02-09 08:40] LABS: BASOPHILS % (AUTO) 0.2 % (0.0-2.0); EOSINOPHILS % (AUTO) 0.3 % (0.0-6.0); HEMATOCRIT 47 % (39-51); HEMOGLOBIN 15.3 g/dL (13.5-17.5); LYMPHOCYTES # (AUTO) 0.3 /CMM (0.8-4.8); LYMPHOCYTES % (AUTO) 4.9 % (20.0-44.0); MEAN CORPUSCULAR HGB CONC 33 g/dl (31.0-36.0); MEAN CORPUSCULAR VOLUME 91 fL (80-96); MONOCYTES # (AUTO) 0.1 /CMM (0.1-1.30); NEUTROPHILS # (AUTO) 4.8 /CMM (1.8-8.9); NEUTROPHILS % (AUTO) 92.6 % (43.0-81.0); PLATELET COUNT (AUTO) 248 /CMM (150-450); RED BLOOD CELL COUNT(AUTO) 5.14 MIL/uL (4.5-6.0); WHITE BLOOD COUNT (AUTO) 5.2 K/uL (4.3-11.0)
[2020-02-09] MEDS: CYANOCOBALAMIN 500 MCG TABLET PO SCH (09:00)
[2020-02-09] MEDS: METOPROLOL SUCCINATE 25 MG TAB.SR.24H PO SCH (09:00)
[2020-02-09] MEDS: METFORMIN 500 MG TABLET PO SCH ×2 (09:00→16:45)
[2020-02-09 09:02] LABS: POTASSIUM 4.4 mmol/L (3.5-5.1)
[2020-02-09 09:03] LABS: ALBUMIN 2.5 g/dL (3.4-5.0); BILIRUBIN,TOTAL 0.4 mg/dL (0.2-1.0); CALCIUM, SERUM 9.7 mg/dL (8.5-10.1); CREATININE 0.7 mg/dL (0.6-1.3)
[2020-02-09 09:04] LABS: TOTAL PROTEIN, SERUM 7.2 g/dL (6.4-8.2)
[2020-02-09 13:41] LABS: APPEARANCE,URINE CLEAR (CLEAR); BILIRUBIN,URINE SMALL (NEGATIVE); BLOOD, URINE NEGATIVE Ery/uL (NEGATIVE); COLOR,URINE YELLOW (YELLOW); KETONES,URINE 40 (NEGATIVE); LEUKOCYTE ESTERASE ,URINE NEGATIVE (NEGATIVE); NITRITE, URINE NEGATIVE (NEGATIVE); PROTEIN,URINE TRACE mg/dl (NEGATIVE); UGLUCOSE >=1000 mg/dL (NEGATIVE); UROBILINOGEN,URINE 0.2 EU/dL (0.2)
--- NOTE | 2020-02-09 13:53 | NUR ---
MS RN NOTES PATIENT LEFT FOR OR VIA BED. LEFT IN STABLE CONDITION.
[2020-02-09] MEDS ORDERED: ROCURONIUM BROMIDE 50 MG/5 ML ONE (13:55)
[2020-02-09] MEDS ORDERED: MIDAZOLAM HCL 2 MG/2ML VIAL ONE (13:55)
[2020-02-09] MEDS ORDERED: methylPREDNISolone SOD SUCC 125 MG/2ML VIAL ONE (13:56)
[2020-02-09] MEDS ORDERED: FAMOTIDINE/PF INJ 20 MG/2 ML VIAL IV ONE (13:56)
[2020-02-09] MEDS ORDERED: LIDOCAINE 5% OINT 35.44 GM TUBE ONE (14:16)
[2020-02-09] MEDS ORDERED: LIDOCAINE HCL/MPF 1% 30 ML VIAL IJ ONE (14:19)
[2020-02-09 14:36] LABS: BACTERIA,URINE None seen /HPF (None Seen); RBC,URINE 0-2 /HPF (0-2); SQUAMOUS EPITHELIAL CELL,UR 0-2 /HPF (None Seen); WBC,URINE 0-2 /HPF (0-3)
--- NOTE | 2020-02-09 14:50 | NUR ---
MS RN NOTES REPORT GIVEN TO TANK BOURNE FOR CONTINUITY OF CARE.
--- NOTE | 2020-02-09 15:50 | NUR ---
RN NOTES RECEIVED PATIENT FROM OR, PATIENT STILL SEDATED. ORALLY INTUBATED TO WITH TUBE SIZE 8 AT 23CM ON THE LIP. ON VENT WITH SETTINGS ORDERED. PATIENT WITH NO SIGN OF RESPIRATORY DISTRESS. ATTACHED TO THE MONITOR, MADE COMFORTABLE AND WARMTH IN BED. SAFETY MEASURES OBSERVED AND MADE IN PLACE. CALL LIGHT PLACED WITHIN REACH, WILL CONTINUE TO MONITOR PATIENT AND CARRY OUT POST-OP ORDERS Addendum: 02/09/20 at 1854 by TAYLA CHAN RN PLEURX CHEST TUBE ON THE R CHEST WALL INSERTED AND NOW SECURED WITH TRANSPARENT DRESSING. NO BLEEDING OR DRAINAGE NOTED ON THE SITE. DRESSING IN PLACE AND INTACT
[2020-02-09 16:08] LABS: ABG BASE EXCESS 7.2 mmol/L; ABG OXYGEN SATURATION 99.7 % (92.0-98.5); ABG PCO2 47.2 mmHg (35.0-45.0); ABG PH 7.455 (7.350-7.450); ABG PO2 369.7 mmHg (75.0-100.0); AaDO2 296.1 mmHg; COHb 0.7 % (0.5-1.5); MetHb 0.4 % (0.0-1.5); O2Hb 98.6 % (94.0-97.0); PEEP,BG 5 cm H2O; SITE, ABG Right Radial; VENT MODE, BG AC 20; VT, ABG 650 mL
[2020-02-09] MEDS: PROPOFOL 100 ML IV PRN (16:16)
--- NOTE | 2020-02-09 16:30 | NUR ---
RN NOTES ABG RESULTS OBTAINED AND RELAYED TO DR. CHARLTON WITH ORDERS MADE. NEW ORDERS RELAYED TO RT, NILESH RT CARRIED OUT ORDERS.
--- NOTE | 2020-02-09 17:00 | NUR ---
rn notes spoke and update Dr. Kilgore, informed latter that the patient is now intubated orally and is on the vent, sedated with Diprivan currently on 20mcg infusing over the g 20 iv site on the left hand. also told him that 1. no central line is available, 2. planned to insert an ngt but since no oral medication is due right now or tomorrow might not insert instead and planned to also insert colon but MD not okay with colon. order noted and carried out Addendum: 02/09/20 at 1811 by TAYLA CHAN RN OBTAINED ORDER FOR LOVENOX 40MG SQ Q DAILY
--- NOTE | 2020-02-09 17:30 | NUR ---
RN NOTES INSULIN NOT GIVEN DUE TO PATIENT NPO, INHALER NOT GIVEN PATIENT INTUBATED
--- NOTE | 2020-02-09 19:00 | NUR ---
RN NOTES ENDORSED FOR CONTINUITY OF CARE. NOT ON ANY FORM OF DISTRESS. STILL INTUBATED ON VENT. TOLERATING CURRENT VENT SETTINGS. NO SHORTNESS OF BREATH NOTED. PATIENT STILL SEDATED WITH DIPRIVAN AT 15MCG. IVF INFUSING AT 75CC/HR. HOB ELEVATED. SAFETY MEASURES IN PLACE. CALL LIGHT WITHIN REACH
--- NOTE | 2020-02-09 19:56 | NUR ---
RT NOTE PT RECEIVED INTUBATED WITH 8.0 ET TUBE SECURED WITH 23 CM ON MID LIP LINE. SX DONE, ET TUBE SECURED AND PATENT. NO DISTRESS NOTED AT THIS TIME. CONT. PULSE OX CONNECTED. ALARMS ON AND AUDIBLE. Addendum: 02/09/20 at 1957 by ADRIAN CRYSTAL RT Amended: Links added.
--- NOTE | 2020-02-09 20:00 | NUR ---
N NOTES received pts in bed STILL INTUBATED ON VENT. TOLERATING CURRENT VENT SETTINGS. NO SHORTNESS OF BREATH NOTED. PATIENT STILL SEDATED WITH DIPRIVAN AT 15MCG. IVF D5NS INFUSING AT 75CC/HR. HOB ELEVATED. SAFETY MEASURES IN PLACE. CALL LIGHT WITHIN REACH v/s stable afebrile , s/p bronchoscopy inserted right pleurx cath intact and patent ,and clamp dressing dry and intact no bleeding noted,pts on bilateral soft wrist restraint to,prevent from pulling of invasive tubing.pts on left hand at G20 and right hand G#20 intact and patent ..will continue to monitor pts
--- NOTE | 2020-02-09 21:00 | NUR ---
agriculture sales account manager notes pts noted with mild agitation diprivan ggt increase to 20 mcg/kg/min as ordered ,will continue to monitor pts.
[2020-02-09] MEDS: ENOXAPARIN SODIUM 40 MG/0.4 ML DISP.SYRIN SQ SCH (21:02)
[2020-02-09] MEDS: CYCLOBENZAPRINE 10 MG TABLET PO SCH (21:53)
--- NOTE | 2020-02-09 21:54 | NUR ---
LENS MARKER NOTES FLEXEREL NOT GIVEN D/T PTS NPO STATUS.
--- NOTE | 2020-02-09 22:00 | NUR ---
manager icu notes blood sugar for 10pm is 191mg/dl 3 units of regular insulin given as ordered.
[2020-02-10] VITALS (23 sets, daily range): BP systolic 94–153; BP diastolic 41–86
[2020-02-10] MEDS: PROPOFOL 100 ML IV PRN ×2 (00:13→06:09)
[2020-02-10] MEDS: methylPREDNISolone SOD SUCC 125 MG/2ML VIAL IV SCH ×2 (00:17→13:00)
[2020-02-10] MEDS: IPRATROPIUM/ALBUTEROL INHALER IH SCH ×3 (06:00→13:00)
--- NOTE | 2020-02-10 06:00 | NUR ---
REGIONAL DRIVER NOTES PTS NOTED WITH MINIMAL URINE , BLADDER SCAN DONE PVR >[address] OSHEA WITH ORDER MAY INSER MCRAE D/T URINARY RETENSION ,ORDER NOTED AND CARRIED OUT ABLE TO GET 600CC OF YELLOWISH URINE OUTPUT. PTS IS CALM DIPRIVAN GTT DECREASE TO 15MCG/KG/MIN .WILL ENDORSE TO RN DAY SHIFT FOR CONTINUITY OF CARE.V/S STABLE AND AFEBRILE.
[2020-02-10] MEDS: IV D5/ 0.9% NACL 1,000 ML IV PRN (06:27)
--- NOTE | 2020-02-10 08:00 | NUR ---
ELECTRICAL HIGH TENSION TESTER NOTE PATIENT IN BED , SEDATED ON INTUBATION ORDERED , WITH DIPRIVAN DRIP AND IVF ORDERED ON TELE MONITOR SR , WITH CLEMENTINA GE TO GRAVITY WITH YELLOW COLOR URINE BED IN LOWEST AND LOCKED POSITION , WILL CONT TO MONITOR Addendum: 02/10/20 at 1835 by RONEY PARSONS RN 08 rt chest pleury cath in puce with dressing in place ,no acute bleeding noted
[2020-02-10] MEDS: METFORMIN 500 MG TABLET PO SCH ×2 (08:27→16:24)
[2020-02-10] MEDS: BLOOD SUGAR DIAGNOSTIC 1 EACH STRIP IN SCH ×4 (08:27→22:08)
[2020-02-10] MEDS: METOPROLOL SUCCINATE 25 MG TAB.SR.24H PO SCH (08:27)
[2020-02-10] MEDS: CYANOCOBALAMIN 500 MCG TABLET PO SCH (08:28)
--- NOTE | 2020-02-10 08:31 | NUR ---
ICU OVER FLOW PER DR ORDER RT AT BEDSIDE VENT SETTING ORDERED SIMV MODE RATE PROPOFOL DRIP IS HOLD AT THIS TIME WILL MONITOR Addendum: 02/10/20 at 0833 by RONEY PARSONS RN PATIENT NOW MORE AWAKE ABLE TO FOLLOW SIMPLE COMMAND
--- NOTE | 2020-02-10 09:08 | NUR ---
ICU OVER FLOW ABG DONE ORDERED BY RT
[2020-02-10 09:12] LABS: ABG BASE EXCESS 5.1 mmol/L; ABG OXYGEN SATURATION 97.6 % (92.0-98.5); ABG PH 7.493 (7.350-7.450); ABG PO2 99.6 mmHg (75.0-100.0); AaDO2 141.9 mmHg; COHb 0.6 % (0.5-1.5); MetHb 0.4 % (0.0-1.5); O2Hb 96.6 % (94.0-97.0); SITE, ABG Right Radial; VENT MODE, BG SIMV 4 PS 15 +5 40 %
[2020-02-10] MEDS ORDERED: DC PROPOFOL WHEN EXTUBATED XX PRN (09:30)
--- NOTE | 2020-02-10 09:45 | NUR ---
INSPECTOR RECEIVING NOTE EXTUBATION DONE BY RT ,PLACED ON 5L NC SAT 93% WILL MONITOR
--- NOTE | 2020-02-10 10:55 | NUR ---
ICU OVERFLOW RN NOTE STOPPED PROPOFOL, D\C SOFT RESTRAIN , UP ON EGE OF BED TOLERATED WELL ,SAT 95%
--- NOTE | 2020-02-10 11:40 | NUR ---
ICU OVER CHEST X RAY DONE , SEEN BY DR ZOLTAN CUNHA, TO SIT ET EDGE OF BED
--- NOTE | 2020-02-10 12:54 | NUR ---
ICU OVER FLOW PER DR OSHEA OK TO REMOVE MCRAE CATH WILL F\U
--- NOTE | 2020-02-10 13:20 | NUR ---
ICU OVER FLOW RN NOTE PER DR ZOLTAN CUNHA TO START DIABETIC DIET ,PATIENT ABLE TOLERATED ICE CHIP WELL
--- NOTE | 2020-02-10 15:46 | NUR ---
ICU OVER FLOW RN NOTE MCRAE CATH IS REMOVED ORDERED , KEEP CLEAN DRY WILL MONITOR FOR VOIDING
[2020-02-10] MEDS: COMBIVENT RESPIMAT INH SCH (18:13)
[2020-02-10] MEDS: INSULIN REGULAR, HUMAN 100 UNIT/ML 3 ML VIAL SQ PRN ×3 (18:14→22:10)
--- NOTE | 2020-02-10 18:14 | NUR ---
icu overflow rn note unable to urinate ,feel ok and called to pharmacy x2 about insulin vial to bring ,stated that will bring soon , spoke with guille ovalle , still not unavailable
--- NOTE | 2020-02-10 19:10 | NUR ---
RN OPENING NOTES RECEIVED PATIENT SITTING IN BED, A/OX4, ABLE TO MAKE NEEDS KNOWN. DENIES ANY PAIN. ON OXYGEN 3L VIA NASAL CANNULA, TOLERATING WELL, SATURATING 97% AT THE MOMENT, NO DISTRESS NOTED. ON TELE MONITOR SINUS TACHY WITH HR 120'S. IV SITE RIGHT HAND 20G FLUSHING AND INTACT, SALINE LOCKED. PATIENT REQUESTING CPAP AND STATED "I USE IT EVERY NIGHT" WILL CHECK ORDER. SAFETY MEASURES IN PLACE; CALL LIGHT WITHIN REACH, SIDE RAILS UP X2, HOB ELEVATED, BED LOCKED AND IN LOWEST POSITION. PER AM RN, PATIENT S/P EXTUBATION TODAY, ALSO WAS ABLE TO URINATE WELL S/P NESSA MCRAE. WILL CONT TO MONITOR PT CLOSELY.
--- NOTE | 2020-02-10 19:13 | NUR ---
td rn note all needs attended not in distress, able to ambulate to br and urinate well ,not in distres
[2020-02-10] MEDS: ENOXAPARIN SODIUM 40 MG/0.4 ML DISP.SYRIN SQ SCH (20:53)
--- NOTE | 2020-02-10 21:00 | NUR ---
RT pt requests to be placed on noc cpap early. pt tolerating cpap at this time on peep of 10, fio2 28%. HR102 spo2 94%.
[2020-02-10] MEDS: CYCLOBENZAPRINE 10 MG TABLET PO SCH (22:00)
[2020-02-11] VITALS: BP 122/59
--- NOTE | 2020-02-11 | NUR ---
RN NOTES FREQUENT ROUNDING DONE. PATIENT SLEEPING IN BED COMFORTABLY. ON CPAP, TOLERATING WELL. NO ACUTE DISTRESS NOTED. WILL CONT TO MONITOR CLOSELY.
--- NOTE | 2020-02-11 | NUR ---
RN NOTES UNABLE TO SCAN PATIENT'S HOME MED COMBIVENT, MANUAL BARCODE DONE INSTEAD.
[2020-02-11] MEDS: COMBIVENT RESPIMAT INH SCH ×4 (00:19→17:12)
[2020-02-11 04:00] VITALS: BP 129/64
--- NOTE | 2020-02-11 06:54 | NUR ---
RN CLOSING NOTES PATIENT SLEEPING IN BED, BUT EASY TO AROUSE, A/OX4, ABLE TO MAKE NEEDS KNOWN. DENIES ANY PAIN. STILL ON CPAP, FIO2 28%, PEEP 10, TOLERATING WELL, NO DISTRESS NOTED. ON TELE MONITOR SINUS TACHY WITH HR 100'S. IV SITE RIGHT HAND 20G FLUSHING AND INTACT, SALINE LOCKED. SAFETY MEASURES IN PLACE; CALL LIGHT WITHIN REACH, SIDE RAILS UP X2, HOB ELEVATED, BED LOCKED AND IN LOWEST POSITION. WILL ENDORSE TO AM RN FOR JAZMYNE. Addendum: 02/11/20 at 0659 by JUAN CLARK RN IN ADDITION, PATIENT REFUSED LOVENOX DESPITE DISCUSSION OF RISKS AND BENEFITS.
[2020-02-11] MEDS: BLOOD SUGAR DIAGNOSTIC 1 EACH STRIP IN SCH ×4 (07:30→21:47)
--- NOTE | 2020-02-11 07:53 | NUR ---
RN opening notes: Received pt resting in bed comfortably with CPAP intact, pt has no s/s of labored brathing, pt denies any pain at this time. pt is AOx4, verbal and on bed rest. skin is intact, no wound present, edema present BLE, pt is CCHO diet tolerating well, IV on R hand 20 G S/l patent, and intact.Safety measures have been implemented, call light Within rich, bed at the lowest position, side ralesx2 up, will continue to monitor for any changes.
[2020-02-11 08:00] VITALS: BP 117/52
[2020-02-11] MEDS: CYANOCOBALAMIN 500 MCG TABLET PO SCH (09:18)
[2020-02-11] MEDS: METFORMIN 500 MG TABLET PO SCH ×2 (09:18→17:06)
[2020-02-11] MEDS: INSULIN REGULAR, HUMAN 100 UNIT/ML 3 ML VIAL SQ PRN ×3 (09:21→21:50)
--- NOTE | 2020-02-11 09:33 | NUR ---
RN NOTES PER DR. OSHEA, OK TO WITHDRAW FLUID FROM [facility] FOR FUNGAL CULTURE AND RECIEVED OK FROM HIM TO TRANSFER TO .
--- NOTE | 2020-02-11 11:55 | NUR ---
rn NOTES PT SPOKE WITH DR OSHEA VIA FACE TIME. PT QUESTIONS ANSWERED , WILL CONTINUE TO MONITOR
[2020-02-11 12:00] VITALS: BP 128/58
--- NOTE | 2020-02-11 13:38 | NUR ---
RN NOTES PATIENT HAS BEEN TRANSFERRED TO ROOM 313-1, TRANSFER REPORT GIVEN TO JP FU FOR JAZMYNE
--- NOTE | 2020-02-11 13:45 | NUR ---
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 A/O X4, vital signs stable, denies any shortness of breath or pain at this time. Dressing to right mid back covering pleurx drain clean and dry. Oriented to new surroundings, aware of how to use call light and operate television. Will continue to monitor and ensure safety.
--- NOTE | 2020-02-11 15:30 | NUR ---
MS/RN Heplock New heplock inserted - 22g left hand.
[2020-02-11 16:00] VITALS: BP 149/86
--- NOTE | 2020-02-11 17:00 | NUR ---
MS/RN Blood sugar Blood sugar at 5p - 128, no coverage needed.
--- NOTE | 2020-02-11 18:23 | NUR ---
MS/RN End note Patient remains in stable condition, no new needs or concerns. All questions answered/addressed. For possible discharge to home tomorrow, will provided own transport. Will endorse to supervisor pit and auxiliaries.
--- NOTE | 2020-02-11 19:20 | NUR ---
MS RN PT IN BED WATCHING TV A/O X 3 STABLE AND NOT IN DISTRESS, SAFETY MEASURES AT ALL TIMES. WILL CONT TO MONITOR
[2020-02-11 20:00] VITALS: BP 120/73
[2020-02-11] MEDS: CYCLOBENZAPRINE 10 MG TABLET PO SCH (21:47)
[2020-02-11] MEDS: ENOXAPARIN SODIUM 40 MG/0.4 ML DISP.SYRIN SQ SCH (21:48)
[2020-02-12] MEDS: COMBIVENT RESPIMAT INH SCH ×3 (00:54→12:00)
[2020-02-12] MEDS: BLOOD SUGAR DIAGNOSTIC 1 EACH STRIP IN SCH ×2 (05:44→11:48)
[2020-02-12] MEDS: INSULIN REGULAR, HUMAN 100 UNIT/ML 3 ML VIAL SQ PRN ×2 (05:49→11:48)
--- NOTE | 2020-02-12 05:49 | NUR ---
MS RN BLOOD SUGAR 166 MG/DL GIVEN 3 UNITS WITNESSED BY 1 RN PT WANTED TO EAT LIGHT SNACK AND 8 OZ OF ORANGE JUICE.
--- NOTE | 2020-02-12 05:57 | NUR ---
MS RN PT SLEPT WELL TOLERATED CPAP ORDERED AT HS, O2 SAT 100%. MONITORED FOR PAIN AND ACCORDINGLY, NEEDS ATTENDED AND ANTICIPATED, KEPT CLEAN, DRY AND COMFORTABLE AT ALL TIMES, NO S/S OF DISTRESS, NO C/O OF PAIN. SAFETY MEASURES AT ALL TIMES. ENDORSE TO NEXT SHIFT POC.
[2020-02-12 08:00] VITALS: BP 132/67
[2020-02-12] MEDS: CYANOCOBALAMIN 500 MCG TABLET PO SCH (08:33)
[2020-02-12] MEDS: METFORMIN 500 MG TABLET PO SCH (08:33)
--- NOTE | 2020-02-12 12:10 | NUR ---
Per dr. Kilgore patient cleared for D/C by dr. Dykes and can be send home
--- NOTE | 2020-02-12 14:15 | NUR ---
Patient cleared for d/c to home with home health by . Patient awake , alert and orientedx4 , ambulatory with assistants, on O2 3L via NC. Patient has O2 at home. VS are stable and saturation above 95%. D/C instructions provided, patient educated and will f/u with PCP in one week and as needed. HH agency on the case. PlurX bottle provided and instruction provided. Patient verbalized understanding. Drainage side clean and dry, dressing intact. NO other skin issues. IV line removed and ID wrist band removed. 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 Patient picked up by Frances friend.
[2020-02-13] MEDS ORDERED: Exenatide Microspheres (Bydureon Pen) 2 MG SQ SCH (08:30)
== END 2020-02-12 14:15 | disposition home health service (06) | DRG 180 ==
LOC: ER 09:09 → TELE2 13:11 → MEDSG2 02-08 07:00 → ICUOV 02-09 15:31 → TELE-TD 02-10 18:56 → MEDSG1 02-11 07:42 → MED 02-11 13:26
PROVIDERS: ADMIT Internal Medicine; ATTEND Internal Medicine
PROC: 0B9C8ZX Drainage of Right Upper Lung Lobe, Via Natural or Artificial Opening Endoscopic, Diagnostic (ICD-10-PCS; principal; 2020-02-09)
PROC: 0BD48ZX Extraction of Right Upper Lobe Bronchus, Via Natural or Artificial Opening Endoscopic, Diagnostic (ICD-10-PCS; 2020-02-09)
PROC: 0W9930Z Drainage of Right Pleural Cavity with Drainage Device, Percutaneous Approach (ICD-10-PCS; 2020-02-09)
DX: C34.11 Malignant neoplasm of upper lobe, right bronchus or lung (principal); J96.92 Respiratory failure, unspecified with hypercapnia; J96.91 Respiratory failure, unspecified with hypoxia; J98.11 Atelectasis; C79.9 Secondary malignant neoplasm of unspecified site; J91.8 Pleural effusion in other conditions classified elsewhere; E11.9 Type 2 diabetes mellitus without complications; I10 Essential (primary) hypertension; Z87.891 Personal history of nicotine dependence; E66.01 Morbid (severe) obesity due to excess calories; E78.5 Hyperlipidemia, unspecified; G47.33 Obstructive sleep apnea (adult) (pediatric); J44.9 Chronic obstructive pulmonary disease, unspecified; Z79.4 Long term (current) use of insulin; M54.9 Dorsalgia, unspecified; Z79.84 Long term (current) use of oral hypoglycemic drugs
CPT/HCPCS: 31720; 36415; 36600; 71045-TC; 71250-TC; 80053-TC; 81000-TC; 82803-TC; 82962-TC; 83880; 84484-TC; 85025-TC; 85730-TC; 86850-TC; 87081-TC; 87102-TC; 88108-TC; 88305-TC; 88312-TC; 88341; 88342; 93307-TC; 94002-TC; 94760-TC; 94799-TC; G0378; J0330; J0690; J1650; J1815; J2250; J2405; J2704; J2765; J2930; J3490; J7030; J7042